=== PATIENT | male | born 1970 | race Caucasian/White ===

== ENCOUNTER 2023-05-17 07:19 | Outpatient (CLI) | payer OTHER ==
[~2023-05-17 07:19] MED LIST: METRONIDAZOLE500 MG PO
== END 2023-05-17 07:29 | disposition home or self-care (01) ==
LOC: TOM 07:19
PROVIDERS: ATTEND Specialist
DX: K40.90 Unilateral inguinal hernia, without obstruction or gangrene, not specified as recurrent (principal); R10.31 Right lower quadrant pain

== ENCOUNTER → 2023-08-15 10:59 | Outpatient (CLI) | payer OTHER | END | disposition home or self-care (01) | LOC: RAD 10:59 | DX: R05.1 Acute cough (principal) ==

== ENCOUNTER 2023-10-16 08:12 | Outpatient (CLI) | payer OTHER | END 2023-10-16 08:22 | disposition home or self-care (01) | LOC: SONOGRAMA 08:12 | PROVIDERS: ATTEND General Practice | DX: K40.91 Unilateral inguinal hernia, without obstruction or gangrene, recurrent (principal); N50.811 Right testicular pain ==

== ENCOUNTER 2023-10-22 14:04 | Outpatient (CLI) | payer OTHER | END 2023-10-22 14:19 | disposition home or self-care (01) | LOC: SONOGRAMA 14:04 | PROVIDERS: ATTEND Specialist | DX: K40.91 Unilateral inguinal hernia, without obstruction or gangrene, recurrent (principal) ==

== ENCOUNTER 2024-05-16 10:32 | Outpatient (CLI) | payer OTHER | END 2024-05-16 10:34 | disposition home or self-care (01) | LOC: TOM 10:32 | PROVIDERS: ATTEND General Practice | DX: G40.89 Other seizures (principal); J20.8 Acute bronchitis due to other specified organisms; J98.2 Interstitial emphysema; M54.2 Cervicalgia ==

== ENCOUNTER 2024-05-27 09:08 | Outpatient (CLI) | payer OTHER | END 2024-05-27 09:15 | disposition home or self-care (01) | LOC: TOM 09:08 | PROVIDERS: ATTEND General Practice | DX: R10.84 Generalized abdominal pain (principal) ==

== ENCOUNTER 2024-07-15 22:21 | Emergency (ER) | payer OTHER ==
[~2024-07-15] VITALS: Ht 190.5 cm; Wt 81.6 kg
[2024-07-15] MEDS ORDERED: ZESTRIL2.5 MG (22:36)
[2024-07-15] MEDS ORDERED: LIPITOR40 M1 (22:36)
[2024-07-15] MEDS ORDERED: TOPROL XL25 M1 (22:36)
[2024-07-16] MEDS ORDERED: FAMOTIDINE/PF 20 MG/2 ML VIAL IV PUSH STA (01:16)
[2024-07-16] MEDS ORDERED: KETOROLAC TROMETHAMINE 60 MG VIAL IM STA (01:16)
[2024-07-16] MEDS ORDERED: KETOROLAC TROMETHAMINE 60 MG VIAL IM ONE (01:37)
[2024-07-16] MEDS ORDERED: FAMOTIDINE/PF 20 MG/2 ML VIAL ONE (01:37)
[2024-07-16 02:54] LABS: BASO % 0.3 % (0.1-1.2); EOS # 0.08 (0.04-0.54); EOS % 0.8 % (0.7-7.0); HEMATOCRIT 38.1 % (40.1-51.0); HEMOGLOBIN 13.1 g/dL (13.7-17.5); LYMPH # 1.74 (1.18-3.74); LYMPH % 17.3 % (19.3-53.1); MEAN CORPUSCULAR HEMOGLOBIN 32.1 pg (25.6-32.2); MONO # 0.46 (0.24-0.82); MONO % 4.6 % (4.7-12.5); NEUT # 7.73 (1.56-6.13); NEUT % 76.7 % (34.0-71.1); PLATELET COUNT 224 K/uL (163-369); RED BLOOD COUNT 4.08 M/uL (4.63-6.08); RED CELL DISTRIBUTION WIDTH 12.9 % (11.6-14.4)
[2024-07-16 02:57] LABS: PH,URINE 5.5 (5.0-8.0); URINE APPEARANCE Clear; URINE BILIRRUBIN Negative (NEGATIVE); URINE BLOOD Negative; URINE COLOR Yellow; URINE GLUCOSE Negative (NEGATIVE); URINE KETONE Trace (NEGATIVE); URINE LEUKOCYTE Trace; URINE NITRATE Negative; URINE PROTEIN Negative (NEGATIVE)
[2024-07-16 03:02] LABS: URINE BACTERIA 9.7 uL (0.0-1933); URINE RBC 2.2 uL (0.0-20.8); URINE WBC 14.8 uL (0.0-23.2)
[2024-07-16 03:05] LABS: URINE CAST 0.29 uL (0.0-1.40)
[2024-07-16 03:19] LABS: INR 1.04; PARTIAL THROMBOPLASTIN TIME 25.6 SECONDS (22.0-34.0); PROTHROMBIN TIME 11.3 SECONDS (9.0-11.5)
[2024-07-16 04:23] LABS: ALBUMIN 4.3 gm/dL (3.4-5.0); BILIRUBIN TOTAL 0.69 mg/dL (0.3-1.2); CALCIUM 9.3 mg/dL (8.5-10.1); CREATININE SERUM 0.91 mg/dL (0.70-1.30); POTASSIUM 4.61 mEq/L (3.5-5.1); TOTAL PROTEIN 7.3 gm/dL (6.4-8.2)
[2024-07-16 04:26] LABS: GFR 87.49
== END 2024-07-16 04:46 ==
LOC: ER 22:48
PROVIDERS: General Practice
DX: R55 Syncope and collapse (principal); I10 Essential (primary) hypertension

== ENCOUNTER 2024-09-15 09:59 | Outpatient (CLI) | payer OTHER ==
[~2024-09-15 09:59] MED LIST changes: +LIPITOR40 M1; +TOPROL XL25 M1; +ZESTRIL2.5 MG
== END 2024-09-15 10:09 | disposition home or self-care (01) ==
LOC: TOM 09:59
DX: R10.84 Generalized abdominal pain (principal); N20.2 Calculus of kidney with calculus of ureter

== ENCOUNTER 2024-12-11 06:00 | Day surgery (SDC) | payer OTHER ==
[2024-12-05 08:29] VITALS: BP 118/77
[2024-12-05 08:31] LABS: BASO % 0.4 % (0.1-1.2); EOS # 0.18 (0.04-0.54); EOS % 1.8 % (0.7-7.0); LYMPH # 2.15 (1.18-3.74); LYMPH % 21.5 % (19.3-53.1); MEAN PLATELET VOLUME 9.90 fl (9.4-12.4); MONO # 0.53 (0.24-0.82); MONO % 5.3 % (4.7-12.5); NEUT # 7.07 (1.56-6.13); NEUT % 70.8 % (34.0-71.1); RED CELL DISTRIBUTION WIDTH 12.9 % (11.6-14.4)
[2024-12-05 08:55] LABS: INR 1.03
[2024-12-05 09:28] LABS: ALT/SGPT 29.0 U/L (12-78); AST/SGOT 14.0 U/L (15-37); BILIRUBIN TOTAL 0.73 mg/dL (0.3-1.2); BUN CREA RATIO 22.0 (7.0-25.0); CREATININE SERUM 0.64 mg/dL (0.70-1.30); GFR 131.33; GLOBULINA 2.6 G/DL (2.4-3.5); GLUCOSE FASTING 95.0 mg/dL (65-100); OSMOLALITY SERUM 287.0 MOSM/KG (275-295)
[~2024-12-11] VITALS: Ht 195.6 cm; Wt 68.9 kg
[~2024-12-11 06:00] MED LIST changes: +TAMS0.4C PO
== END 2024-12-11 14:00 | disposition home or self-care (01) ==
LOC: CIR.AMB 06:00
PROVIDERS: ATTEND Internal Medicine
DX: D12.3 Benign neoplasm of transverse colon (principal); R19.4 Change in bowel habit; K63.5 Polyp of colon; K57.30 Diverticulosis of large intestine without perforation or abscess without bleeding